=== PATIENT | male | born 1975 | race Two or more races ===

== ENCOUNTER 2019-09-04 06:50 | Day surgery (SDC) | payer OTHER ==
[~2019-09-04 06:50] MED LIST: INTESTINEX1 CA1 PO; JANUMET XR 1001 EACH; KETO10TA2 PO; OXYC1TAB9 PO; PROTONIX40 MG PO; ZOFRAN8 MG PO
== END 2019-09-04 12:10 | disposition home or self-care (01) ==
LOC: AMB-ENDOS 06:50 → ADM 15:30 → AMB-ENDOS 15:30
DX: D12.0 Benign neoplasm of cecum (principal); D12.3 Benign neoplasm of transverse colon; K64.8 Other hemorrhoids; K64.4 Residual hemorrhoidal skin tags

== ENCOUNTER 2019-09-06 19:16 | Emergency (ER) | payer OTHER ==
[~2019-09-06] VITALS: Ht 167.6 cm; Wt 88.5 kg
== END 2019-09-06 23:49 | disposition home or self-care (01) ==
LOC: ER 19:16
DX: J06.9 Acute upper respiratory infection, unspecified (principal)

== ENCOUNTER 2020-03-29 05:35 | Day surgery (SDC) | payer OTHER ==
[2020-03-29] MEDS ORDERED: KETO10TA2 PO (12:20)
[2020-03-29] MEDS ORDERED: PERCOCET 5-3251 EACH PO (12:20)
[2020-03-29] MEDS ORDERED: RECTICARE30 GM TOP (12:21)
[2020-03-29] MEDS ORDERED: NEURONTIN300 MG PO (12:21)
== END 2020-03-29 16:10 | disposition home or self-care (01) ==
LOC: CIR.AMB 05:35
PROVIDERS: ATTEND Surgery
DX: K64.4 Residual hemorrhoidal skin tags (principal); K64.8 Other hemorrhoids; Z20.828 Contact with and (suspected) exposure to other viral communicable diseases

== ENCOUNTER 2023-10-07 16:08 | Emergency (ER) | payer OTHER ==
[~2023-10-07] VITALS: Ht 167.6 cm; Wt 83.5 kg
[~2023-10-07 16:08] MED LIST changes: +NEURONTIN300 MG PO; +PERCOCET 5-3251 EACH PO; +RECTICARE30 GM TOP
[2023-10-07] MEDS ORDERED: COZAAR50 MG PO (16:17)
[2023-10-07] MEDS ORDERED: TRAMADOL HCL 50 MG TABLET PO ONE (17:30)
[2023-10-07] MEDS ORDERED: KETOROLAC TROMETHAMINE 30 MG VIAL IV ONE (17:30)
[2023-10-07] MEDS ORDERED: ACETAMINOPHEN 500 MG GEL..CAP PO ONE (17:30)
[2023-10-07] MEDS ORDERED: CLINDAMYCIN PHOSPHATE 150 MG/ML (600mg) IV ONE (17:30)
== END 2023-10-07 20:06 | disposition home or self-care (01) ==
LOC: ER 16:09
DX: K04.7 Periapical abscess without sinus (principal); E11.9 Type 2 diabetes mellitus without complications; Z79.84 Long term (current) use of oral hypoglycemic drugs; I10 Essential (primary) hypertension

== ENCOUNTER 2024-10-30 02:32 | Emergency (ER) | payer OTHER ==
[~2024-10-30] VITALS: Ht 167.6 cm; Wt 80.7 kg
[~2024-10-30 02:32] MED LIST changes: +COZAAR50 MG PO
[2024-10-30] MEDS ORDERED: ORPHENADRINE CITRATE 30 MG/ML AMPUL IV STA (05:15)
[2024-10-30] MEDS ORDERED: PROMETHAZINE HCL 50 MG/ML AMPUL IM STA (05:15)
[2024-10-30] MEDS ORDERED: KETOROLAC TROMETHAMINE 30 MG VIAL IV SCH (05:15)
[2024-10-30] MEDS ORDERED: 0.9 % SODIUM CHLORIDE 500 ML IV ONE (05:30)
[2024-10-30] MEDS ORDERED: ORPHENADRINE CITRATE 30 MG/ML AMPUL ONE (05:51)
[2024-10-30] MEDS ORDERED: KETOROLAC TROMETHAMINE 30 MG VIAL ONE (05:51)
[2024-10-30] MEDS ORDERED: PROMETHAZINE HCL 50 MG/ML AMPUL IM ONE (05:51)
[2024-10-30] MEDS ORDERED: ESGIC 50-325-41 EACH PO (07:44)
== END 2024-10-30 07:56 ==
LOC: ER 02:35
DX: G43.909 Migraine, unspecified, not intractable, without status migrainosus (principal); I10 Essential (primary) hypertension; E11.9 Type 2 diabetes mellitus without complications; Z79.84 Long term (current) use of oral hypoglycemic drugs

== ENCOUNTER 2025-07-13 07:14 | Outpatient (CLI) | payer OTHER ==
[~2025-07-13 07:14] MED LIST changes: +ESGIC 50-325-41 EACH PO
== END 2025-07-13 07:15 | disposition home or self-care (01) ==
LOC: NUCLEAR 07:14
PROVIDERS: ATTEND Internal Medicine
DX: I20.9 Angina pectoris, unspecified (principal)